=== PATIENT | female | born 1995 | race Two or more races ===

== ENCOUNTER 2017-07-30 11:44 | Emergency (ER) | payer MEDICAID ==
[2017-07-30] MEDS ORDERED: NS 1,000 ML IV ONE (12:05)
--- NOTE | 2017-07-30 12:07 | CPEKG ---
Heart Rate: 77 RR Interval: 779 P-R Interval: 160 QRSD Interval: 80 QT Interval: 372 QTC Interval: 421 P [place]: 16 QRS [place]: 41 T Wave [place]: 34 EKG Severity - NORMAL ECG - EKG Impression: SINUS RHYTHM Electronically Signed By: Zion Dominguez 30-Jul-2017 13:27:06
[2017-07-30 13:17] LABS: % IMMATURE GRANULYOCYTES 0.2 % (0.0-1.1); ABSOLUTE IMMATURE GRANULOCYTES 0.01 10^3/uL (0.00-0.10); ADD DIFF? NO; ADD MORPH? NO; ADD SCAN? NO; ATYPICAL LYMPHOCYTE FLAG 10 (0-99); FRAGMENT RBC FLAG 0 (0-99); HEMATOCRIT 37.9 % (38.0-47.0); HEMOGLOBIN 13.2 g/dL (12.6-16.3); LEFT SHIFT FLG 0 (0-99); LIPEMIA HEMOLYSIS FLAG 90 (0-99); MEAN CELL HEMOGLOBIN 32.4 pg (27.9-34.1); MEAN CELL HEMOGLOBIN CONCENTR. 34.8 g/dL (32.4-36.7); MEAN CELL VOLUME 93.1 fL (81.5-99.8); PLATELET CLUMPS FLAG 0 (0-99); PLATELET COUNT 311 10^3/uL (150-400); RED BLOOD CELL COUNT 4.07 10^6/uL (4.18-5.33); RED CELL DISTRIBUTION WIDTH 12.6 % (11.5-15.2)
--- NOTE | 2017-07-30 13:27 | EDPHY ---
H & P Stated Complaint: syncope upon standing this am, h/a, lightheaded,no trauma-- Time Seen by Provider: 07/30/17 13:00 HPI/ROS: CHIEF COMPLAINT: Syncope HISTORY OF PRESENT ILLNESS: The patient presents to the ED after a syncopal episode at home. The patient reportedly developed her symptoms after waking up today. She had no associated chest pain or shortness of breath. She has been under some increasing stress secondary to exams at school. The patient has had some decreased p.o. intake as a result. She had a mild headache after her pre syncopal episode which has resolved. She has no complaints of acute headache, numbness, weakness, traumatic injury, abdominal pain or additional acute medical complaints. She has had a mild upper respiratory infection over the past week with nasal congestion and a slight sore throat. She was treated for a urinary tract infection 2 weeks ago with antibiotics and denies any ongoing dysuria. REVIEW OF SYSTEMS: A comprehensive 10 point review of systems is otherwise negative aside from elements mentioned in the history of present illness. Source: Patient Exam Limitations: No limitations - Personal History LMP (Females 10-55): 22-28 Days Ago Current Tetanus/Diphtheria Vaccine: Unsure Current Tetanus Diphtheria and Acellular Pertussis (TDAP): Unsure - Medical/Surgical History Hx Asthma: No Hx Chronic Respiratory Disease: No Hx Diabetes: No Hx Cardiac Disease: No Hx Renal Disease: No Hx Cirrhosis: No Hx Alcoholism: No Hx HIV/AIDS: No Hx Splenectomy or Spleen Trauma: No Other PMH: syncopal event in past unk reason - Social History Smoking Status: Never smoked - Physical Exam Exam: General Appearance: Alert, no distress Eyes: Pupils equal and round no pallor or injection ENT, Mouth: Mucous membranes moist Respiratory: There are no retractions, lungs are clear to auscultation Cardiovascular: Regular rate and rhythm Gastrointestinal: Abdomen is soft and nontender, no masses, bowel sounds normal Neurological: A&O, normal motor function, normal sensory exam, normal cranial nerves Skin: Warm and dry, no rashes Musculoskeletal: Neck is supple nontender Extremities: symmetrical, full range of motion Constitutional: Initial Vital Signs Temperature (C) 37.0 C 07/30/17 11:49 Heart Rate 87 07/30/17 11:49 Respiratory Rate 16 07/30/17 11:49 Blood Pressure 117/80 07/30/17 11:49 O2 Sat (%) 99 07/30/17 11:49 O2 Delivery Mode Room Air Allergies/Adverse Reactions: No Known Allergies Allergy (Unverified 08/22/13 21:31) Medical Decision Making - Diagnostics EKG Interpretation: EKG: Complete interpretation has been separately recorded in the [facility] archive. Summary impression: Sinus rhythm, rate 77 ED Course/Re-evaluation: The patient presents to the ED after a syncopal episode consistent with a vasovagal episode. She is neurologically intact without evidence of an acute traumatic injury or obvious infectious process. Her EKG demonstrates no evidence of arrhythmia. The patient did receive 1 L of normal saline. The patient's laboratory studies are normal. Her test is negative. The patient received IV fluid and was re-evaluated by myself. At 2:30 p.m. she is ambulatory and in no acute distress. She presents to the ED after a likely vasovagal episode. She is entirely asymptomatic at this point time. Her laboratory studies are normal. Her EKG is normal. I do feel she can be discharged home with instructions to increase her fluid intake. She should return to the emergency department for the development of any acute symptoms such as chest pain, shortness of breath, severe headache or neurologic symptoms. Differential Diagnosis: Differential diagnosis considered includes arrhythmia, metabolic abnormality, renal failure, dehydration, ectopic , vasovagal episode, critical anemia - Data Points Laboratory Results: Laboratory Results 07/30/17 13:00 07/30/17 13:00 07/30/17 07/30/17 07/30/17 13:00 13:00 13:00 WBC 4.45 10^3/uL 10^3/uL (3.80-9.50) RBC 4.07 10^6/uL L 10^6/uL (4.18-5.33) Hgb 13.2 g/dL g/dL (12.6-16.3) Hct 37.9 % L % (38.0-47.0) MCV 93.1 fL fL (81.5-99.8) MCH 32.4 pg pg (27.9-34.1) MCHC 34.8 g/dL g/dL (32.4-36.7) RDW 12.6 % % (11.5-15.2) Plt Count 311 10^3/uL 10^3/uL (150-400) MPV 11.0 fL fL (8.7-11.7) Neut % (Auto) 49.1 % % (39.3-74.2) Lymph % (Auto) 39.3 % % (15.0-45.0) [place] % (Auto) 7.6 % % (4.5-13.0) Eos % (Auto) 2.9 % % (0.6-7.6) Baso % (Auto) 0.9 % % (0.3-1.7) Nucleat RBC Rel Count 0.0 % % (0.0-0.2) Absolute Neuts (auto) 2.18 10^3/uL 10^3/uL (1.70-6.50) Absolute Lymphs (auto) 1.75 10^3/uL 10^3/uL (1.00-3.00) Absolute Monos (auto) 0.34 10^3/uL 10^3/uL (0.30-0.80) Absolute Eos (auto) 0.13 10^3/uL 10^3/uL (0.03-0.40) Absolute Basos (auto) 0.04 10^3/uL 10^3/uL (0.02-0.10) Absolute Nucleated RBC 0.00 10^3/uL 10^3/uL (0-0.01) Immature Gran % 0.2 % % (0.0-1.1) Immature Gran # 0.01 10^3/uL 10^3/uL (0.00-0.10) Sodium 141 mEq/L mEq/L (134-144) Potassium 4.3 mEq/L mEq/L (3.5-5.2) Chloride 108 mEq/L mEq/L (97-110) Carbon Dioxide 21 mEq/l L mEq/l (22-31) Anion Gap 12 mEq/L mEq/L (8-16) BUN 5 mg/dL L mg/dL (7-23) Creatinine 0.6 mg/dL mg/dL (0.6-1.0) Estimated GFR > 60 Glucose 83 mg/dL mg/dL (70-100) Calcium 9.1 mg/dL mg/dL (8.5-10.4) Beta HCG, Qual NEGATIVE Medications Given: Discontinued Medications Sodium Chloride (Ns) 1,000 mls @ 0 mls/hr IV EDNOW ONE; Wide Open PRN Reason: Protocol Stop: 07/30/17 12:06 Last Admin: 07/30/17 12:31 Dose: 1,000 mls Departure - Departure Disposition: Home, Routine, Self-Care Clinical Impression: Vasovagal episode Condition: Good Instructions: Hypotension (ED) Additional Instructions: 1. Please return to the emergency department for any chest pain, shortness of breath, recurrent symptoms of passing out, headache, numbness, weakness or other concerns. 2. Please increase your fluid and calorie intake as mild dehydration may have contributed to your symptoms today. 3. If you continue to experience positional dizziness I do recommend scheduling a follow-up visit with our transportation design engineer. You have been referred to our cardiology service who would be happy to see you for any ongoing mild symptoms. Referrals: Hakan Uriarte MD [Medical Doctor] - As per Instructions
[2017-07-30 13:34] LABS: ANION GAP 12 mEq/L (8-16); CALCIUM 9.1 mg/dL (8.5-10.4); CARBON DIOXIDE 21 mEq/l (22-31); CHLORIDE 108 mEq/L (97-110); CREATININE 0.6 mg/dL (0.6-1.0); GLOMERULAR FILTRATION RATE > 60; GLUCOSE 83 mg/dL (70-100); POTASSIUM 4.3 mEq/L (3.5-5.2); SODIUM 141 mEq/L (134-144)
[2017-07-30 14:38] VITALS: BP 127/77; PULSE 81; RESP 18; TEMP 98.4; O2SAT 95
== END 2017-07-30 14:37 | disposition home or self-care (01) ==
DX: R55 Syncope and collapse (principal); E86.9 Volume depletion, unspecified

== ENCOUNTER 2017-11-03 02:38 | Emergency (ER) | payer MEDICAID ==
[2017-11-03] MEDS ORDERED: NS 1,000 ML IV ONE (02:43)
[2017-11-03] MEDS ORDERED: ONDANSETRON 4 MG/2 ML VIAL IVP ONE (02:43)
--- NOTE | 2017-11-03 02:43 | EDPHY ---
H & P HPI/ROS: HPI CHIEF COMPLAINT: Abdominal pain HISTORY OF PRESENT ILLNESS: Patient is a 22-year-old female she presents emergency room by EMS from her dorm room with abdominal pain. The pain is located periumbilical. She states this woke her from sleep approximately an hour ago. She had nausea but no vomiting. She thought she maybe she had to have a bowel movement. While sitting on the toilet her discomfort got worse. Rather severe around her periumbilical region. Crampy in nature. It is since resolved mostly but still has a 2/10 at this time. She denies any vaginal discharge, denies being , denies fever, denies back pain, denies urinary symptoms. Decided call 911 and come by ambulance to the emergency room for this. Past Medical History: No medical history Past Surgical History: No surgical history Social History: [employer] student, resides in a dorm, denies illicit drugs alcohol tobacco. Family History: Noncontributory ROS REVIEW OF SYSTEMS: A comprehensive 10 point review of systems is otherwise negative aside from elements mentioned in the history of present illness. Exam Constitutional appears well nontoxic triage nursing summary reviewed, vital signs reviewed, awake/alert. Eyes normal conjunctivae and sclera, EOMI, PERRLA. HENT normal inspection, atraumatic, moist mucus membranes, no epistaxis, neck supple/ no meningismus, no raccoon eyes. Respiratory clear to auscultation bilaterally, normal breath sounds, no respiratory distress, no wheezing. Cardiovascular rate normal, regular rhythm, no murmur, no edema, distal pulses normal. Gastrointestinal soft, mild tenderness to palpation periumbilical, no rebound , no guarding, normal bowel sounds, no distension, no pulsatile mass. Genitourinary no CVA tenderness. Musculoskeletal no midline vertebral tenderness, full range of motion, no calf swelling, no tenderness of extremities, no meningismus, good pulses, neurovascularly intact. Skin pink, warm, & dry, no rash, skin atraumatic. Neurologic awake, alert and oriented x 3, AAOx3, moves all 4 extremities equally, motor intact, sensory intact, CN II-XII intact, normal cerebellar, normal vision, normal speech. Psychiatric normal mood/affect. Heme/Lymph/Immune no lymphadenopathy. Differential diagnosis includes but is not limited to and in no particular order : Bowel obstruction, appendicitis, gallbladder disease, diverticulitis, colitis , enteritis, perforated viscus, gastritis, GERD, esophagitis, urinary tract infection, pyelonephritis, kidney stones Medical Decision Making: Plan for this patient IV establishment with blood draw , check urinalysis, check test, check white count, IV fluids, Zofran for nausea and re-evaluate. Re-evaluation: 0529AM: Re-examination at this time patient resting comfortably. Abdomen is soft nontender. I re-evaluated her abdomen she has no significant tenderness on exam. Her blood work has been reviewed in there is no high white count. Initial urinalysis was a dirty catch. Repeat urinalysis is unremarkable. She is feeling better. She has not had any vomiting here no fever and no ongoing abdominal pain. I did not proceed with CT scan as I felt her abdomen was pretty benign. I will allow her to go home. However she understands if she develops worsening abdominal pain fever or vomiting she should return to the emergency room. This includes worsening pain over the next 24-48 hours. We would then probably need to proceed with CT scan to rule out acute appendicitis. I think acute appendicitis at this time is unlikely given no white count no fever no vomiting and her abdomen is rather benign. Return precautions discussed. Source: Patient, EMS - Medical/Surgical History Hx Asthma: No Hx Chronic Respiratory Disease: No Hx Diabetes: No Hx Cardiac Disease: No Hx Renal Disease: No Hx Cirrhosis: No Hx Alcoholism: No Hx HIV/AIDS: No Hx Splenectomy or Spleen Trauma: No Other PMH: syncopal event in past unk reason - Social History Smoking Status: Never smoked Constitutional: Initial Vital Signs Temperature (C) 36.5 C 11/03/17 02:42 Heart Rate 85 11/03/17 02:42 Respiratory Rate 16 11/03/17 02:42 Blood Pressure 124/85 H 11/03/17 02:42 O2 Sat (%) 95 11/03/17 02:42 O2 Delivery Mode Room Air Allergies/Adverse Reactions: No Known Allergies Allergy (Unverified 11/03/17 02:41) Home Medications: Medication Instructions Recorded Accutane 11/03/17 Medical Decision Making - Data Points Laboratory Results: Laboratory Results 11/03/17 02:50 11/03/17 02:50 11/03/17 11/03/17 11/03/17 05:01 02:50 02:50 WBC RBC Hgb Hct MCV MCH MCHC RDW Plt Count MPV Neut % (Auto) Lymph % (Auto) [place] % (Auto) Eos % (Auto) Baso % (Auto) Nucleat RBC Rel Count Absolute Neuts (auto) Absolute Lymphs (auto) Absolute Monos (auto) Absolute Eos (auto) Absolute Basos (auto) Absolute Nucleated RBC Immature Gran % Immature Gran # PT INR APTT Sodium Potassium Chloride Carbon Dioxide Anion Gap BUN Creatinine Estimated GFR Glucose Calcium Total Bilirubin Conjugated Bilirubin Unconjugated Bilirubin AST ALT Alkaline Phosphatase Total Protein Albumin Lipase Beta HCG, Qual NEGATIVE Urine Color YELLOW YELLOW Urine Appearance CLEAR MODERATELY TURBID Urine pH 5.0 5.0 (5.0-7.5) (5.0-7.5) Ur Specific [place] 1.024 1.029 (1.002-1.030) (1.002-1.030) Urine Protein NEGATIVE NEGATIVE (NEGATIVE) (NEGATIVE) Urine Ketones TRACE H NEGATIVE (NEGATIVE) (NEGATIVE) Urine Blood NEGATIVE NEGATIVE (NEGATIVE) (NEGATIVE) Urine Nitrate NEGATIVE NEGATIVE (NEGATIVE) (NEGATIVE) Urine Bilirubin NEGATIVE NEGATIVE (NEGATIVE) (NEGATIVE) Urine Urobilinogen NEGATIVE EU EU NEGATIVE EU EU (0.2-1.0) (0.2-1.0) Ur Leukocyte Esterase NEGATIVE 2+ H (NEGATIVE) (NEGATIVE) Urine RBC 5-10 /hpf H /hpf (0-3) Urine WBC 5-10 /hpf H /hpf (0-3) Ur Epithelial Cells TRACE /lpf /lpf (NONE-1+) Urine Mucus 4+ /lpf H /lpf (NONE-1+) Urine Glucose NEGATIVE NEGATIVE (NEGATIVE) (NEGATIVE) 11/03/17 11/03/17 11/03/17 02:50 02:50 02:50 WBC 7.65 10^3/uL 10^3/uL (3.80-9.50) RBC 4.24 10^6/uL 10^6/uL (4.18-5.33) Hgb 13.5 g/dL g/dL (12.6-16.3) Hct 39.6 % % (38.0-47.0) MCV 93.4 fL fL (81.5-99.8) MCH 31.8 pg pg (27.9-34.1) MCHC 34.1 g/dL g/dL (32.4-36.7) RDW 12.5 % % (11.5-15.2) Plt Count 340 10^3/uL 10^3/uL (150-400) MPV 11.7 fL fL (8.7-11.7) Neut % (Auto) 52.9 % % (39.3-74.2) Lymph % (Auto) 36.2 % % (15.0-45.0) [place] % (Auto) 7.2 % % (4.5-13.0) Eos % (Auto) 2.7 % % (0.6-7.6) Baso % (Auto) 0.7 % % (0.3-1.7) Nucleat RBC Rel Count 0.0 % % (0.0-0.2) Absolute Neuts (auto) 4.05 10^3/uL 10^3/uL (1.70-6.50) Absolute Lymphs (auto) 2.77 10^3/uL 10^3/uL (1.00-3.00) Absolute Monos (auto) 0.55 10^3/uL 10^3/uL (0.30-0.80) Absolute Eos (auto) 0.21 10^3/uL 10^3/uL (0.03-0.40) Absolute Basos (auto) 0.05 10^3/uL 10^3/uL (0.02-0.10) Absolute Nucleated RBC 0.00 10^3/uL 10^3/uL (0-0.01) Immature Gran % 0.3 % % (0.0-1.1) Immature Gran # 0.02 10^3/uL 10^3/uL (0.00-0.10) PT 13.1 SEC SEC (12.0-15.0) INR 0.97 (0.83-1.16) APTT 30.1 SEC SEC (23.0-38.0) Sodium 143 mEq/L mEq/L (135-145) Potassium 4.3 mEq/L mEq/L (3.5-5.2) Chloride 105 mEq/L mEq/L (97-110) Carbon Dioxide 24 mEq/l mEq/l (22-31) Anion Gap 14 mEq/L mEq/L (8-16) BUN 10 mg/dL mg/dL (7-23) Creatinine 0.6 mg/dL mg/dL (0.6-1.0) Estimated GFR > 60 Glucose 95 mg/dL mg/dL (70-100) Calcium 9.6 mg/dL mg/dL (8.5-10.4) Total Bilirubin 0.6 mg/dL mg/dL (0.1-1.4) Conjugated Bilirubin 0.3 mg/dL mg/dL (0.0-0.5) Unconjugated Bilirubin 0.3 mg/dL mg/dL (0.0-1.1) AST 24 IU/L IU/L (14-46) ALT 39 IU/L IU/L (9-52) Alkaline Phosphatase 69 IU/L IU/L (38-126) Total Protein 8.2 g/dL g/dL (6.3-8.2) Albumin 4.5 g/dL g/dL (3.5-5.0) Lipase 126 IU/L IU/L (23-300) Beta HCG, Qual Urine Color Urine Appearance Urine pH Ur Specific [place] Urine Protein Urine Ketones Urine Blood Urine Nitrate Urine Bilirubin Urine Urobilinogen Ur Leukocyte Esterase Urine RBC Urine WBC Ur Epithelial Cells Urine Mucus Urine Glucose Medications Given: Discontinued Medications Sodium Chloride (Ns) 1,000 mls @ 0 mls/hr IV EDNOW ONE; Wide Open PRN Reason: Protocol Stop: 11/03/17 02:44 Last Admin: 11/03/17 02:55 Dose: 1,000 mls Ondansetron HCl (Zofran) 4 mg IVP EDNOW ONE Stop: 11/03/17 02:44 Last Admin: 11/03/17 02:55 Dose: 4 mg Departure - Departure Disposition: Home, Routine, Self-Care Clinical Impression: Abdominal pain Qualifiers: Abdominal location: unspecified location Qualified Code(s): R10.9 - Unspecified abdominal pain Condition: Good Instructions: Acute Abdominal Pain (ED) Additional Instructions: 1. [place] diet over the next 24-48 hours. 2. Return immediately to the emergency room if there is worsening abdominal pain fever or vomiting. Referrals: Patient,NotPresent [Unknown] - As per Instructions
[2017-11-03 02:44] VITALS: PULSE 85
[2017-11-03 03:13] LABS: PLATELET COUNT 340 10^3/uL (150-400)
[2017-11-03 03:22] LABS: INR 0.97 (0.83-1.16); PROTIME(PATIENT) 13.1 SEC (12.0-15.0)
[2017-11-03 06:02] VITALS: BP 128/75; RESP 18; TEMP 98.8; O2SAT 97
== END 2017-11-03 06:04 | disposition home or self-care (01) ==
LOC: EDUNIT#
DX: R10.33 Periumbilical pain (principal); E86.9 Volume depletion, unspecified
CPT/HCPCS: 96374; J2405